=== PATIENT | male | born 1965 | race Caucasian/White ===

== ENCOUNTER 2018-01-05 21:33 | Observation (INO) ==
[2018-01-05] MEDS ORDERED: NITROGLYCERIN 2% OINT 1 INCH/GM PACK TOP STA (22:43)
[2018-01-05] MEDS ORDERED: METOPROLOL TARTRATE 25 MG TABLET PO STA (22:43)
[2018-01-05] MEDS ORDERED: ONDANSETRON 4 MG/2 ML VIAL IV STA (22:43)
[2018-01-05] MEDS ORDERED: ASPIRIN 325 MG TABLET PO STA (22:43)
[2018-01-05] MEDS ORDERED: ALUM/MAG/SIMETH/LIDO VISC 1:1 30 ML BOTTLE PO STA (22:43)
[2018-01-05] MEDS ORDERED: MORPHINE 2 MG/1 ML SYRINGE IV STA (22:43)
[2018-01-05 22:49] LABS: Basophils % 0.3 % (0.0-0.8); Eosinophils # 0.4 10*3/uL (0.0-0.87); Eosinophils % 3.7 % (0.00-10.9); Hematocrit 46.1 VOL% (42.0-52.0); Hemoglobin 15.8 GM/DL (14.0-18.0); Immature Granulocytes % 0.3 %; Immature Granulocytes Absolute 0.03 #; Lymphocytes # 3.8 10*3/uL (1.4-4.0); Lymphocytes % 38.2 % (21.2-54.2); Mean Corpuscular HGB Conc 34.3 GM/DL (32-36); Mean Corpuscular Hemoglobin 31 PG (27-34); Mean Corpuscular Volume 90.2 FL (87-102); Mean Platelet Volume 10.2 FL (9.6-12.0); Monocytes % 9.6 % (1.7-12.7); Neutrophils # 4.7 10*3/uL (1.4-7.4); Neutrophils % 47.9 % (38.7-73.9); Platelet Count 205 T/CUMM (130-400); Red Blood Count 5.11 MC/CUMM (3.8-5.5); Red Cell Distribution Width 12.5 % (9.3-17.3); White Blood Count 9.9 T/CUMM (4-12)
[2018-01-05 22:56] LABS: PT Patient Result 10.6 SECS
[2018-01-05 23:02] LABS: Albumin 4.1 G/DL (3.4-5.0); Bilirubin,Total 0.4 MG/DL (0.2-1.0); Calcium 8.6 MG/DL (8.5-10.1); Osmolality,Calculated 284.5 MOS/KG (273-304); Potassium 3.8 MMOL/L (3.5-5.1); Total Protein 7.7 G/DL (6.4-8.3)
[2018-01-05] MEDS ORDERED: ASPIRIN 325 MG TABLET ONE (23:28)
[2018-01-05] MEDS ORDERED: NITROGLYCERIN 2% OINT 1 INCH/GM PACK TOP ONE (23:28)
[2018-01-05] MEDS ORDERED: ONDANSETRON 4 MG/2 ML VIAL ONE (23:28)
[2018-01-05] MEDS ORDERED: MORPHINE 2 MG/1 ML SYRINGE ONE (23:28)
[2018-01-05] MEDS ORDERED: METOPROLOL TARTRATE 25 MG TABLET ONE (23:28)
[2018-01-05] MEDS ORDERED: ALUM/MAG/SIMETH/LIDO VISC 1:1 30 ML BOTTLE PO ONE (23:29)
[2018-01-05] MEDS ORDERED: ENOXAPARIN 100 MG/ML SYRINGE SUBCUT STA (23:42)
[2018-01-06] MEDS ORDERED: MORPHINE 2 MG/1 ML SYRINGE IV PRN (00:48)
[2018-01-06] MEDS ORDERED: ACETAMINOPHEN 325 MG TABLET PO PRN (00:48)
[2018-01-06] MEDS ORDERED: GLUCAGON 1 MG VIAL IM PRN (00:48)
[2018-01-06] MEDS ORDERED: ONDANSETRON 4 MG/2 ML VIAL IV PRN (00:48)
[2018-01-06] MEDS ORDERED: DEXTROSE 50% 25 GM/50 ML VIAL IV PRN (00:48)
[2018-01-06] MEDS ORDERED: ENOXAPARIN 80 MG/0.8 ML SYRINGE SUBCUT ONE (02:00)
[2018-01-06] MEDS ORDERED: ENOXAPARIN 30 MG/0.3 ML SYRINGE ONE (02:00)
[2018-01-06 03:01] LABS: Calcium 8.4 MG/DL (8.5-10.1); Osmolality,Calculated 285.4 MOS/KG (273-304); Potassium 3.9 MMOL/L (3.5-5.1)
[2018-01-06] MEDS ORDERED: NITROGLYCERIN SL 0.4 MG TABLET SL PRN (03:17)
[2018-01-06] MEDS: INSULIN LISPRO 100 UNIT/ML SUBCUT SCH ×3 (08:06→17:07)
[2018-01-06] MEDS ORDERED: FENOFIBRATE 145 MG TABLET PO SCH (09:00)
[2018-01-06] MEDS ORDERED: ATORVASTATIN 20 MG TABLET PO SCH (09:00)
[2018-01-06] MEDS ORDERED: PANTOPRAZOLE 40 MG TABLET PO SCH (09:00)
[2018-01-06] MEDS ORDERED: Dapagliflozin Propanediol [Farxiga] 10 MG PO SCH (09:00)
[2018-01-06] MEDS ORDERED: PANTOPRAZOLE 40 MG TABLET PO ONE (09:06)
[2018-01-06 16:50] VITALS: BP 123/92
[2018-01-06] MEDS ORDERED: ENOXAPARIN 40 MG/0.4 ML SYRINGE SUBCUT SCH (21:00)
== END 2018-01-06 19:29 | disposition home or self-care (01) ==
LOC: N.ED 21:33 → N.EDINP 21:33 → N.TELES 01-06 11:55
PROVIDERS: ADMIT Internal Medicine; ATTEND Internal Medicine